=== PATIENT | female | born 1940 | race Caucasian/White ===

== ENCOUNTER → 2018-09-14 | Outpatient (CLI) | payer OTHER, MEDICARE | LOC: FIMAGING 12:38 → EDSTATUS 12:40 | PROVIDERS: ATTEND Family Medicine | DX: G89.29 Other chronic pain (principal) ==

== ENCOUNTER → 2018-09-22 | Day surgery (SDC) | payer OTHER, MEDICARE ==
[~2018-09-22] MED LIST: BUPIVACAINE 0.25% 30 ML SDV ONE; DEPO METHYLPREDNISOLONE 40 MG/ML SDV ONE; LIDOCAINE 1% 300 MG/30 ML SDV ONE
== END | disposition home or self-care (01) ==
LOC: FIMAGING 08:03
PROVIDERS: ATTEND Radiology Diagnostic Radiology
DX: M53.3 Sacrococcygeal disorders, not elsewhere classified (principal)
CPT/HCPCS: J1030